=== PATIENT | male | born 1990 | race Caucasian/White ===

== ENCOUNTER 2018-07-31 01:20 | Inpatient (IN) ==
[2018-07-31] MEDS ORDERED: ceFAZolin 2 GM Premix Inj 2 GM/50 ML PIGGYBACK IV.SIG ONE ×2 (01:24→08:34)
[2018-07-31] MEDS ORDERED: Diphtheria/Tetanus/Pertussis Vaccine Inj 0.5 ML Syringe IM ONE (01:24)
[2018-07-31] MEDS ORDERED: Gentamicin/NS 80 mg Premix 100 ML IV.SIG ONE (01:24)
[2018-07-31 01:40] LABS: Baso # (Auto) 0.3 th/mm3 (0.0-0.2); Baso % (Auto) 3.4 % (0.0-2.0); Eos # (Auto) 0.2 th/mm3 (0.0-0.4); Eos % (Auto) 1.9 % (0.0-4.0); Hematocrit 44.6 % (39.0-51.0); Lymph % (Auto) 36.3 % (9.0-44.0); Mean Corpuscular HGB Conc 35.9 % (32.0-36.0); Mean Corpuscular Hemoglobin 34.3 pg (27.0-34.0); Mean Corpuscular Volume 95.6 fL (80.0-100.0); Mean Platelet Volume 8.6 fL (7.0-11.0); Mono # (Auto) 0.5 th/mm3 (0.0-0.9); Mono % (Auto) 5.9 % (0.0-8.0); Neut # (Auto) 4.3 th/mm3 (1.8-7.7); Neut % (Auto) 52.5 % (16.0-70.0); Platelet Count 250 th/mm3 (150-450); Red Blood Count 4.66 mil/mm3 (4.50-5.90); Red Cell Distribution Width 13.2 % (11.6-17.2); White Blood Count 8.1 th/mm3 (4.0-11.0)
[2018-07-31 01:49] LABS: Activated Partial Thrombo Time 24.2 sec (23.4-31.7); Prothrombin Time 10.2 sec (9.8-11.6)
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
[2018-07-31] MEDS: Sod Chloride 0.9% Inj 1,000 ML IV.CONT SCH ×2 (03:54→13:07)
[2018-07-31] MEDS: HYDROmorphone PF Inj 1 MG/ML Ampul IV.PUSH PRN ×5 (03:55→20:04)
[2018-07-31] MEDS ORDERED: Chlorhexidine Gluconate 2% 1 Pack (2 Cloths) TOPICAL PRN (04:00)
[2018-07-31] MEDS ORDERED: Chlorhexidine Gluconate 2% 1 Pack (2 Cloths) TOPICAL SCH (04:00)
[2018-07-31] MEDS ORDERED: Pantoprazole Inj 40 MG Vial IV.PUSH SCH (04:00)
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
[2018-07-31] MEDS: Multivitamin Inj 10 ML, Thiamine Inj 100 MG, Folic Acid Inj 1 MG in Sodium Chlor 0.9% I... IV.SIG SCH (05:19)
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
[2018-07-31] MEDS ORDERED: Tranexamic Acid Inj 1,200 MG in Sodium Chlor 0.9% Inj 100 ML IV.SIG SCH (08:00)
[2018-07-31] MEDS: Lidocaine 5% Patch T-DERMAL SCH (08:26)
--- NOTE | 2018-07-31 08:31 | XR ---
EXAM DATE: 07/31/2018 8:19 AM EST AGE/SEX: 89 years / Male INDICATIONS: Evaluate for pneumothorax. Pain in left upper chest. CLINICAL DATA: This is the patient's initial encounter. Patient reports that signs and symptoms have been present for 1 day and indicates a pain score of 7/10. MEDICAL/SURGICAL HISTORY: None. None. COMPARISON: [facility] – [place], [place] CHEST W CONTRAST, 07/31/2018. . FINDINGS: Ill-defined airspace disease in the left midlung with persistent. No definitive pneumothorax. Multipl e left-sided rib fractures again noted. Cardiomediastinal contours are within normal limits. CONCLUSION: 1. Redemonstration of lung contusion in the left midlung. 2. No significant pneumothorax. Electronically signed by: Cecilio Clark MD Board Certified Radiologist 07/31/2018 8:29 AM EST
--- NOTE | 2018-07-31 08:49 | XR ---
EXAM DATE: 07/31/2018 8:17 AM EST AGE/SEX: 89 years / Male INDICATIONS: Evaluate for fracture. CLINICAL DATA: This is the patient's initial encounter. Patient reports that signs and symptoms have been present for 1 day and indicates a pain score of 7/10. MEDICAL/SURGICAL HISTORY: None. None. COMPARISON: No prior exams available for comparison. FINDINGS: Bony structures are intact and in normal alignment. Joints are intact without dislocation or signifi cant arthropathy. A tiny joint effusion. Osseous density is normal. Soft tissues are unremarkable. No radiopaque foreign bodies seen. CONCLUSION: Tiny joint effusion. No fracture observed. Electronically signed by: Mata العراقي MD Board Certified Radiologist 07/31/2018 8:47 AM EST
[2018-07-31] MEDS ORDERED: Docusate Sodium 100 MG Capsule PO SCH (09:00)
[2018-07-31] MEDS: Senna/Docusate Sodium 8.6/50 MG Tablet PO SCH ×2 (09:20→20:05)
[2018-07-31] MEDS ORDERED: Lidocaine PF 1% Inj 5 ML Syringe OTHER ONE (09:22)
[2018-07-31] MEDS ORDERED: Neostigmine Inj 5 MG/5 ML Syringe IV.PUSH ONE (09:22)
[2018-07-31] MEDS ORDERED: Glycopyrrolate Inj 1 MG/5 ML Syringe IV.PUSH ONE (09:22)
[2018-07-31] MEDS ORDERED: Phenylephrine/NS 1000 MCG/10ML Syringe IV.PUSH ONE (09:22)
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
[2018-07-31] MEDS ORDERED: Post-op Orders (for Pharmacy) OTHER STA (11:14)
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
[2018-07-31] MEDS ORDERED: fentaNYL Citrate Inj 100 MCG/2 ML Ampul ONE (12:03)
[2018-07-31] MEDS ORDERED: *Meperidine Inj 25 MG/ML Vial PERIprocedural Use ONLY ONE (12:07)
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
[2018-07-31] MEDS: Methocarbamol 500 MG Tablet PO SCH ×3 (13:01→22:40)
[2018-07-31] MEDS: Ketorolac Inj 30 MG/ML (IVP) Vial IV.PUSH SCH ×2 (13:03→20:05)
[2018-07-31 13:58] LABS: Amphetamine Screen,Urine Neg (Neg); Barbiturate Screen,Urine Neg (Neg); Cannabinoid Screen,Urine Pos (Neg); Cocaine Screen,Urine Pos (Neg)
[2018-07-31 14:02] LABS: Opiate Screen,Urine Pos (Neg)
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
--- NOTE | 2018-07-31 14:48 | XR ---
EXAM DATE: 07/31/2018 2:45 PM EST AGE/SEX: 89 years / Male INDICATIONS: Screw placement right femoral head. CLINICAL DATA: This is the patient's initial encounter. Patient reports that signs and symptoms have been present for 1 day and indicates a pain score of Nonresponsive. MEDICAL/SURGICAL HISTORY: None. None. COMPARISON: [facility] [place] ABDOM[place] & PELVIS W CONTRAST, 07/31/2018. . FINDINGS: 3 images of the right hip demonstrates interval placement of 2 compression screws in the right femora l head with near-anatomic alignment of the femoral head fracture fragments. Hardware appears intact. Remaining osseous structures are intact. CONCLUSION: 1. Right femoral head fixation, as above. Electronically signed by: Cecilio Clark MD Board Certified Radiologist 07/31/2018 2:46 PM EST
[2018-07-31] MEDS: ceFAZolin 2 GM Premix Inj 2 GM/50 ML PIGGYBACK IV.SIG SCH (17:17)
[2018-07-31] MEDS: Famotidine 20 MG Tablet PO SCH (20:05)
[2018-08-01] MEDS: ceFAZolin 2 GM Premix Inj 2 GM/50 ML PIGGYBACK IV.SIG SCH ×2 (00:13→21:59)
[2018-08-01] MEDS: HYDROmorphone PF Inj 1 MG/ML Ampul IV.PUSH PRN ×4 (00:21→21:39)
[2018-08-01] MEDS ORDERED: Enoxaparin Inj 30 MG/0.3 ML Syringe SQ SCH (03:00)
[2018-08-01] MEDS: Ketorolac Inj 30 MG/ML (IVP) Vial IV.PUSH SCH ×2 (04:23→11:29)
[2018-08-01] MEDS ORDERED: Sodium Chlor 0.9% Inj 500 ML IV.CONT ONE (05:00)
[2018-08-01] MEDS ORDERED: Chlorhexidine Gluconate 2% 1 Pack (2 Cloths) TOPICAL ONE (05:00)
[2018-08-01] MEDS: Methocarbamol 500 MG Tablet PO SCH ×3 (06:20→21:39)
--- NOTE | 2018-08-01 06:46 | P.PNOP ---
Subjective Interval history: POD 1 s/p ORIF right femoral head POD 1 s/p I&D and wound closure right knee s/p right talus fx doign well. states hip is doing much better since surgery. Physical Exam Vital signs: Vital Signs 07/31/18 07:00 07/31/18 07:30 07/31/18 08:00 Temperature 99.4 F Pulse Rate 113 H 114 H 132 H Respiratory Rate 13 12 25 H Blood Pressure 133/67 147/81 H 124/86 Pulse Oximetry 98 97 99 07/31/18 08:22 07/31/18 08:30 07/31/18 08:35 Temperature Pulse Rate 117 H Respiratory Rate 18 Blood Pressure 152/104 H Pulse Oximetry 96 98 98 07/31/18 11:58 07/31/18 12:00 07/31/18 12:15 Temperature 97.8 F Pulse Rate 109 H 101 H 99 H Respiratory Rate 20 16 15 Blood Pressure 129/100 H 125/75 140/76 Pulse Oximetry 99 99 98 07/31/18 12:30 07/31/18 12:31 07/31/18 12:33 Temperature 98 F Pulse Rate 100 H Respiratory Rate 13 Blood Pressure 120/68 Pulse Oximetry 98 99 98 07/31/18 12:38 07/31/18 12:51 07/31/18 12:58 Temperature 98.8 F Pulse Rate 98 H 103 H 109 H Respiratory Rate 13 18 16 Blood Pressure 130/71 162/92 H 147/84 H Pulse Oximetry 99 98 98 07/31/18 13:00 07/31/18 13:06 07/31/18 13:30 Temperature Pulse Rate 106 H 96 H Respiratory Rate 25 H 12 10 L Blood Pressure 148/89 H 137/71 Pulse Oximetry 98 98 07/31/18 14:00 07/31/18 14:30 07/31/18 15:00 Temperature Pulse Rate 98 H 98 H 85 Respiratory Rate 10 L 10 L 10 L Blood Pressure 139/67 122/60 125/66 Pulse Oximetry 99 98 97 07/31/18 15:30 07/31/18 15:37 07/31/18 16:00 Temperature 98.4 F Pulse Rate 107 H 106 H 83 Respiratory Rate 13 12 10 L Blood Pressure 133/69 134/73 Pulse Oximetry 96 99 07/31/18 16:30 07/31/18 16:35 07/31/18 17:00 Temperature Pulse Rate 100 H 97 H Respiratory Rate 10 L 10 L 10 L Blood Pressure 125/62 127/66 Pulse Oximetry 97 98 07/31/18 17:30 07/31/18 18:00 07/31/18 18:30 Temperature Pulse Rate 92 H 115 H 120 H Respiratory Rate 13 20 21 Blood Pressure 131/76 129/63 138/84 Pulse Oximetry 100 98 97 07/31/18 19:00 07/31/18 19:30 07/31/18 20:00 Temperature 97.7 F Pulse Rate 105 H 105 H 98 H Respiratory Rate 12 23 16 Blood Pressure 130/58 L 121/57 L 115/67 Pulse Oximetry 97 98 100 07/31/18 20:30 07/31/18 20:38 08/01/18 00:00 Temperature 98.8 F Pulse Rate 106 H 99 H 99 H Respiratory Rate 23 18 18 Blood Pressure 121/73 138/67 Pulse Oximetry 98 95 08/01/18 04:00 08/01/18 04:10 Temperature 99 F Pulse Rate 98 H 74 Respiratory Rate 19 16 Blood Pressure 133/70 Pulse Oximetry 96 Intake & Output 07/31/18 07/31/18 08/01/18 06:59 18:59 06:59 Intake Total 150 / 150 3323.2 / 3323.2 50 / 50 Output Total 450 / 450 650 / 650 Balance -300 / -300 2673.2 / 2673.2 50 / 50 Weight 79.8 kg Intake: IV 150 / 150 1473.2 / 1473.2 50 / 50 NS Inj 1,000 ML @ 100 mls/hr IV 800 / 800 .CONT .Q10H [facility] Rx#:[id number] Gentamicin/NS 80 mg Premix 100 100 / 100 ML @ 0 mls/hr IV.SIG .STK-MED ONE Rx#:[id number] MVI-12 Inj 10 ML Thiamine Inj 511.2 / 511.2 100 MG Folvite Inj 1 MG In NS Inj 500 ML @ 125 mls/hr IV.SIG Q24H [facility] Rx#:[id number] Cyklokapron Inj 1,200 MG In NS 112 / 112 Inj 100 ML @ 200 mls/hr IV.SIG ONCE [facility] Rx#:[id number] Ancef 2 GM Premix Inj 2 gm In 50 / 50 50 / 50 50 / 50 50 ml @ 100 mls/hr IV.SIG Q8H [facility] Rx#:[id number] Oral 650 / 650 Anesthesia Amount 1200 / 1200 Output: Urine 450 / 450 450 / 450 Estimated Blood Loss 200 / 200 Other: # Voids 1 Weight On Admission 79.8 kg Narrative: RLE: dressings clean and dry. intact. +CKS. +splint. intact. nvi Results - Labs CBC & Chem 7: 07/31/18 01:25 Laboratory Results - last 24 hr 07/31/18 12:45 Urine Opiates Screen Pos H Ur Barbiturates Screen Neg Ur Amphetamines Screen Neg U Benzodiazepines Scrn Pos H Urine Cocaine Screen Pos H U Cannabinoids Screen Pos H - Imaging Impressions Ankle CT 07/31/18 00:00 CONCLUSION: 1. Lateral dislocation of the calcaneus with a comminuted fracture involving the lateral aspect of the talus as well as the cuboid. Ankle X-Ray 07/31/18 00:00 CONCLUSION: Poorly seen fracture involving the lateral hindfoot Elbow X-Ray 07/31/18 00:00 CONCLUSION: Tiny joint effusion. No fracture observed. Hip X-Ray 07/31/18 00:00 CONCLUSION: 1. Right femoral head fixation, as above. Knee X-Ray 07/31/18 00:00 CONCLUSION: Intraoperative images. Chest X-Ray 07/31/18 07:27 CONCLUSION: 1. Redemonstration of lung contusion in the left midlung. 2. No significant pneumothorax. Assessment and Plan - Assessment and Plan 1) Right Femoral Head Fx s/p ORIF - POD1 2) Right Knee Lacerations s/p I&D and wound closure - POD 1 3) Right Talus Fx -NWB to RLE -maintain dressings and splint -sign consents -surgery today with Michael for ORIF of right talus
[2018-08-01] MEDS: Multivitamin Inj 10 ML, Thiamine Inj 100 MG, Folic Acid Inj 1 MG in Sodium Chlor 0.9% I... IV.SIG SCH (07:06)
--- NOTE | 2018-08-01 07:14 | XR ---
EXAM DATE: 08/01/2018 7:08 AM EST AGE/SEX: 89 years / Male INDICATIONS: Pain left chest and ribs, short of breath. Evaluate pulmonary contusion. CLINICAL DATA: This is the patient's subsequent encounter. Patient reports that signs and symptoms h ave been present for 2 days and indicates a pain score of 6/10. MEDICAL/SURGICAL HISTORY: . left rib fractures None. COMPARISON: [facility] [place], CHEST 1V SINGLE AP, 07/31/2018. [facility] [place], CT CHEST W CONTRAST, 07/31/2018. [facility] [place], CHES T 1V SINGLE AP, 07/31/2018. . FINDINGS: Today's examination is compared to the prior studies. The right lung remains clear and well-aerated. There continues to be a focal pulmonary contusion in the peripheral left midlung. There is some linea r atelectasis in the left lung base. No definite pneumothorax is seen on this examination. Stable mul tiple left-sided rib fractures. No significant pleural effusions. Heart size is within normal limits. Compared to the prior exams no significant changes are demonstrated. CONCLUSION: Stable examination compared to the prior studies. No significant change in the left-sided pulmonary c ontusion. No definite pneumothorax is seen on this exam. Electronically signed by: Richy Fountain MD Board Certified Radiologist 08/01/2018 7:13 AM EST
[2018-08-01] MEDS ORDERED: ceFAZolin 2 GM Premix Inj 2 GM/50 ML PIGGYBACK IV.SIG SCH (08:00)
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
[2018-08-01 08:12] LABS: Baso % (Auto) 0.5 % (0.0-2.0); Eos # (Auto) 0.1 th/mm3 (0.0-0.4); Eos % (Auto) 0.9 % (0.0-4.0); Hematocrit 31.2 % (39.0-51.0); Hemoglobin 11.1 gm/dL (13.0-17.0); Lymph # (Auto) 1.8 th/mm3 (1.0-4.8); Lymph % (Auto) 24.9 % (9.0-44.0); Mean Corpuscular HGB Conc 35.6 % (32.0-36.0); Mean Corpuscular Hemoglobin 33.7 pg (27.0-34.0); Mean Corpuscular Volume 94.7 fL (80.0-100.0); Mean Platelet Volume 8.7 fL (7.0-11.0); Mono # (Auto) 0.7 th/mm3 (0.0-0.9); Mono % (Auto) 9.4 % (0.0-8.0); Neut # (Auto) 4.6 th/mm3 (1.8-7.7); Neut % (Auto) 64.3 % (16.0-70.0); Platelet Count 155 th/mm3 (150-450); White Blood Count 7.2 th/mm3 (4.0-11.0)
[2018-08-01 08:36] LABS: Calcium 7.5 mg/dL (8.5-10.1); Carbon Dioxide 29.3 meq/L (21.0-32.0); Potassium 3.5 meq/L (3.5-5.1)
[2018-08-01] MEDS: Senna/Docusate Sodium 8.6/50 MG Tablet PO SCH ×2 (09:56→21:39)
[2018-08-01] MEDS: Famotidine 20 MG Tablet PO SCH ×2 (09:58→21:39)
[2018-08-01] MEDS ORDERED: Neostigmine Inj 5 MG/5 ML Syringe IV.PUSH ONE (13:20)
[2018-08-01] MEDS ORDERED: Phenylephrine/NS 1000 MCG/10ML Syringe IV.PUSH ONE (13:20)
[2018-08-01] MEDS ORDERED: Glycopyrrolate Inj 1 MG/5 ML Syringe IV.PUSH ONE (13:20)
[2018-08-01] MEDS ORDERED: Lidocaine PF 1% Inj 5 ML Syringe INFILTRATN ONE (13:20)
[2018-08-01] MEDS ORDERED: Vancomycin Inj 1 GM/200 ML PIGGYBACK IV.SIG SCH (15:00)
[2018-08-01] MEDS ORDERED: ceFAZolin Inj 2,000 MG in Sodium Chlor 0.9% Inj 80 ML IV.SIG SCH (15:00)
--- NOTE | 2018-08-01 15:03 | P.OP ---
- Preoperative Diagnosis (1) Fracture of right talus Date of procedure: 08/01/18 Procedure: Open reduction internal fixation lateral process of right talus Anesthesia: GETRamin Surgeon: Prosper Pantoja MD Edge Bander Hand: ZACHARY Sood PA-C The surgical procedure was assisted by my physician car rental sales assistant. My P.A. presence was necessary throughout this case for the manipulation and positioning of the surgical extremity. My P.A. was assisting me throughout the duration of this procedure. The skill set of a physician car rental sales assistant was medically necessary to complete this procedure. During the surgical case the food quality technician was working at the back table and the physician car rental sales assistant was directly assisting me. Operation and Findings: Plan of activity: Nonweightbearing right leg Implants used: ITS Details of procedure: Informed consent obtained, operative site was marked. The foot and ankle were seen and evaluated this morning. Soft tissue swelling had significantly improved and appeared to be ready for surgery. He was brought to the operating room and placed on the operating room table. He was given intravenous sedation, general endotracheal anesthesia. He received IV antibiotics and was placed in the lateral decubitus position. Foot and leg were prepped with alcohol, followed by Hibiclens, draped in usual sterile fashion. A time out procedure was preformed. The procedure began with a 2 inch incision over the lateral aspect of the lateral process of the talus and subtalar joint. Full-thickness flaps were elevated. The fracture was visualized. There was significant comminution of the fracture. There was significant articular cartilage injury of both the talus and the calcaneus. Multiple small fragments were excised. There were 3 larger fragments. At this point the foot was elevated. The tourniquet was inflated. The joint was distracted. The joint was thoroughly irrigated. At this point attention was turned to reduction of the fracture. The articular surface fragments were reduced first. An additional cortical fragment was reduced. K wires were used to hold provisional fixation. Multiplanar fluoroscopy confirmed well aligned fracture. A 3.5 cortical lag screw with a washer was now placed across the large cortical fragment. An additional 2.7 cortical lag screw was placed across the more anterior fragment. Additional 1.5 mm Arthrex bioabsorbable pins were placed across fragments for additional support. Fluoroscopy confirmed well aligned fracture with well-placed hardware. Incision was thoroughly irrigated. Tourniquet was released. Hemostasis was confirmed. Fascia layer was closed 0 Vicryl, the skin and subcutaneous tissue closed with 3-0 nylon, in vertical mattress fashion. Sterile dressings were applied the patient was placed into a well molded padded splint. The patient was transferred to the Recovery Room in stable condition.
[2018-08-01] MEDS ORDERED: fentaNYL Citrate Inj 100 MCG/2 ML Ampul ONE (15:30)
[2018-08-01] MEDS ORDERED: Morphine Inj 4 MG/ML Vial ONE (15:30)
[2018-08-01] MEDS ORDERED: *morphine SULFATE 4 MG/ML PERIprocedure ONLY ONE (15:35)
[2018-08-01] MEDS ORDERED: *morphine SULFATE 10 MG/ML PERIprocedure ONLY ONE (15:48)
--- NOTE | 2018-08-01 15:50 | P.PNOP ---
Subjective Interval history: POd 0 s/p ORIF right talus POD 1 s/p ORIF right femoral head stable in pacu Physical Exam Vital signs: Vital Signs 07/31/18 16:00 07/31/18 16:30 07/31/18 16:35 Temperature 98.4 F Pulse Rate 83 100 H Respiratory Rate 10 L 10 L 10 L Blood Pressure 134/73 125/62 Pulse Oximetry 99 97 07/31/18 17:00 07/31/18 17:30 07/31/18 18:00 Temperature Pulse Rate 97 H 92 H 115 H Respiratory Rate 10 L 13 20 Blood Pressure 127/66 131/76 129/63 Pulse Oximetry 98 100 98 07/31/18 18:30 07/31/18 19:00 07/31/18 19:30 Temperature Pulse Rate 120 H 105 H 105 H Respiratory Rate 21 12 23 Blood Pressure 138/84 130/58 L 121/57 L Pulse Oximetry 97 97 98 07/31/18 20:00 07/31/18 20:30 07/31/18 20:38 Temperature 97.7 F Pulse Rate 98 H 106 H 99 H Respiratory Rate 16 23 18 Blood Pressure 115/67 121/73 Pulse Oximetry 100 98 08/01/18 00:00 08/01/18 04:00 08/01/18 04:10 Temperature 98.8 F 99 F Pulse Rate 99 H 98 H 74 Respiratory Rate 18 19 16 Blood Pressure 138/67 133/70 Pulse Oximetry 95 96 08/01/18 08:00 08/01/18 08:38 08/01/18 11:55 Temperature 98.1 F 98.4 F Pulse Rate 100 H 95 H 87 Respiratory Rate 16 Blood Pressure 108/57 L 126/58 L Pulse Oximetry 98 95 96 08/01/18 12:00 Temperature 98.3 F Pulse Rate 89 Respiratory Rate 20 Blood Pressure 117/63 Pulse Oximetry 95 Intake & Output 07/31/18 08/01/18 08/01/18 18:59 06:59 18:59 Intake Total 3323.2 / 3323.2 530 / 530 750 / 750 Output Total 650 / 650 270 / 270 Balance 2673.2 / 2673.2 530 / 530 480 / 480 Weight 89.7 kg Intake: IV 1473.2 / 1473.2 50 / 50 50 / 50 NS Inj 1,000 ML @ 100 mls/hr IV 800 / 800 .CONT .Q10H FIDEL Rx#:[id number] MVI-12 Inj 10 ML Thiamine Inj 511.2 / 511.2 100 MG Folvite Inj 1 MG In NS Inj 500 ML @ 125 mls/hr IV.SIG Q24H FIDEL Rx#:[id number] Cyklokapron Inj 1,200 MG In NS 112 / 112 Inj 100 ML @ 200 mls/hr IV.SIG ONCE FIDEL Rx#:[id number] Ancef 2 GM Premix Inj 2 gm In 50 / 50 50 / 50 50 / 50 50 ml @ 100 mls/hr IV.SIG Q8H FIDEL Rx#:[id number] Oral 650 / 650 480 / 480 Anesthesia Amount 1200 / 1200 700 / 700 Output: Urine 450 / 450 250 / 250 Estimated Blood Loss 200 / 200 Other: Date of Last Bowel Movement 07/30/18 07/30/18 Narrative: RLE: dressings clean and dry. intact. +splint. +CKS Results - Labs CBC & Chem 7: 08/01/18 07:05 08/01/18 07:05 Laboratory Results - last 24 hr 08/01/18 08/01/18 07:05 07:05 WBC 7.2 RBC 3.30 L Hgb 11.1 L D Hct 31.2 L MCV 94.7 MCH 33.7 MCHC 35.6 RDW 13.0 Plt Count 155 D MPV 8.7 Neut % (Auto) 64.3 Lymph % (Auto) 24.9 [place] % (Auto) 9.4 H Eos % (Auto) 0.9 Baso % (Auto) 0.5 Neut # (Auto) 4.6 Lymph # (Auto) 1.8 [place] # (Auto) 0.7 Eos # (Auto) 0.1 Baso # (Auto) 0.0 WBC Differential . Differential Comment Auto diff final Sodium 141 Potassium 3.5 Chloride 106 Carbon Dioxide 29.3 Anion Gap 6 BUN 14 Creatinine 0.84 Estimated GFR 79 L Random Glucose 133 H Calcium 7.5 L - Imaging Impressions Chest X-Ray 08/01/18 06:00 CONCLUSION: Stable examination compared to the prior studies. No significant change in the left-sided pulmonary contusion. No definite pneumothorax is seen on this exam. Assessment and Plan - Assessment and Plan 1) Right Femoral Head Fx s/p ORIF - POD1 2) Right Knee Lacerations s/p I&D and wound closure - POD 1 3) Right Talus Fx s/p ORIF - POD 0 -NWB to RLE -maintain dressings and splint -maintain knee brace -maintain surgical dressing over hip x 6 days, then begin daily dressings with [place] on POD 7 -CM for DC planning -DVT prophylaxis -ortho surgeries complete -f/u with [facility] or [facility] in 2 weeks
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
[2018-08-01] MEDS: Lidocaine 5% Patch T-DERMAL SCH ×2 (16:19→17:52)
--- NOTE | 2018-08-01 19:43 | XR ---
EXAM DATE: 08/01/2018 7:36 PM EST AGE/SEX: 27 years / Male INDICATIONS: Right talus ORIF. CLINICAL DATA: This is the patient's initial encounter. Patient reports that signs and symptoms have been present for 1 day and indicates a pain score of Nonresponsive. MEDICAL/SURGICAL HISTORY: Non-responsive. Non-responsive. COMPAR[place]: [facility] [place]/O [place], 07/31/2018. . FINDINGS: 3 images from the OR have been submitted. 2 screws are seen through the proximal and mid tibia from a lateral approach. The hardware appears well placed. CONCLUSION: Successful ORIF. Electronically signed by: Guy Del Toro MD Board Certified Radiologist 08/01/2018 7:42 PM EST
[2018-08-02] MEDS: HYDROmorphone PF Inj 1 MG/ML Ampul IV.PUSH PRN ×5 (02:02→20:23)
[2018-08-02] MEDS: Enoxaparin Inj 30 MG/0.3 ML Syringe SQ SCH ×2 (02:03→14:26)
[2018-08-02] MEDS: Vancomycin Inj 1,000 MG in Sodium Chlor 0.9% Inj 250 ML IV.SIG SCH ×2 (02:03→13:34)
--- NOTE | 2018-08-02 04:56 | XR ---
EXAM DATE: 08/02/2018 4:24 AM EST AGE/SEX: 27 years / Male INDICATIONS: Shortness of breath. CLINICAL DATA: This is the patient's subsequent encounter. Patient reports that signs and symptoms h ave been present for 2 days and indicates a pain score of 1/10. MEDICAL/SURGICAL HISTORY: . Smoker. . Gastrectomy. [place] [facility] [place]. . FINDINGS: Cavitary contusion in the lateral left lower lung is grossly unchanged. Streaky left base parenchymal opacity is also stable. Right lung remains clear. Cardiac contours are unchanged. CONCLUSION: No significant change Electronically signed by: Guy Tariq MD Board Certified Radiologist 08/02/2018 4:55 AM EST
[2018-08-02 05:09] LABS: Baso % (Auto) 0.1 % (0.0-2.0); Hematocrit 32.7 % (39.0-51.0); Hemoglobin 11.5 gm/dL (13.0-17.0); Lymph # (Auto) 0.9 th/mm3 (1.0-4.8); Lymph % (Auto) 9.4 % (9.0-44.0); Mean Corpuscular Hemoglobin 33.6 pg (27.0-34.0); Mean Platelet Volume 9.2 fL (7.0-11.0); Mono # (Auto) 0.7 th/mm3 (0.0-0.9); Mono % (Auto) 7.3 % (0.0-8.0); Neut # (Auto) 7.7 th/mm3 (1.8-7.7); Neut % (Auto) 83.2 % (16.0-70.0); Platelet Count 182 th/mm3 (150-450); Red Blood Count 3.41 mil/mm3 (4.50-5.90); Red Cell Distribution Width 13.1 % (11.6-17.2); White Blood Count 9.3 th/mm3 (4.0-11.0)
[2018-08-02 05:36] LABS: Anion Gap 4 meq/L (5-15); Blood Urea Nitrogen 8 mg/dL (7-18); Calcium 8.1 mg/dL (8.5-10.1); Carbon Dioxide 32.9 meq/L (21.0-32.0); Chloride 103 meq/L (98-107); Glomerular Filtration Rate Greater Than 89 mL/min (>89); Glucose,Random 123 mg/dL (74-106); Potassium 4.1 meq/L (3.5-5.1); Sodium 140 meq/L (136-145)
[2018-08-02] MEDS: ceFAZolin 2 GM Premix Inj 2 GM/50 ML PIGGYBACK IV.SIG SCH ×3 (05:40→22:38)
[2018-08-02] MEDS: Methocarbamol 500 MG Tablet PO SCH ×3 (05:40→22:38)
[2018-08-02] MEDS: Multivitamin Inj 10 ML, Thiamine Inj 100 MG, Folic Acid Inj 1 MG in Sodium Chlor 0.9% I... IV.SIG SCH (06:20)
--- NOTE | 2018-08-02 06:48 | P.PNOP ---
Subjective Interval history: Pain is controlled. Resting comfortably in bed. No new complaints Physical Exam Vital signs: Vital Signs 08/01/18 08:00 08/01/18 08:38 08/01/18 11:55 Temperature 98.1 F 98.4 F Pulse Rate 100 H 95 H 87 Respiratory Rate 16 Blood Pressure 108/57 L 126/58 L Pulse Oximetry 98 95 96 08/01/18 12:00 08/01/18 15:18 08/01/18 15:30 Temperature 98.3 F 98.1 F Pulse Rate 89 112 H 98 H Respiratory Rate 20 14 14 Blood Pressure 117/63 143/83 H 126/65 Pulse Oximetry 95 99 96 08/01/18 15:45 08/01/18 17:56 08/01/18 19:21 Temperature 98.4 F 98.1 F Pulse Rate 96 H 110 H Respiratory Rate 18 18 19 Blood Pressure 135/80 139/68 Pulse Oximetry 95 95 08/01/18 20:00 08/01/18 20:25 08/01/18 22:09 Temperature Pulse Rate 86 Respiratory Rate 18 16 19 Blood Pressure Pulse Oximetry 08/01/18 23:20 08/02/18 00:00 08/02/18 02:49 Temperature 98.6 F Pulse Rate 101 H Respiratory Rate 19 18 18 Blood Pressure 133/78 Pulse Oximetry 95 08/02/18 03:12 08/02/18 05:00 Temperature 98.2 F Pulse Rate 101 H Respiratory Rate 18 18 Blood Pressure 113/67 Pulse Oximetry 94 L Intake & Output 08/01/18 08/01/18 08/02/18 06:59 18:59 06:59 Intake Total 530 / 530 1381.2 / 1381.2 350 / 350 Output Total 870 / 870 2200 / 2200 Balance 530 / 530 511.2 / 511.2 -1850 / -1850 Weight 89.7 kg 94.2 kg Intake: IV 50 / 50 561.2 / 561.2 350 / 350 MVI-12 Inj 10 ML Thiamine Inj 511.2 / 511.2 100 MG Folvite Inj 1 MG In NS Inj 500 ML @ 125 mls/hr IV.SIG Q24H FIDEL Rx#:[id number] Vancomycin Inj 1,000 MG In NS 250 / 250 Inj 250 ML @ 250 mls/hr IV.SIG Q12H FIDEL Rx#:[id number] Ancef 2 GM Premix Inj 2 gm In 50 / 50 50 / 50 100 / 100 50 ml @ 100 mls/hr IV.SIG Q8H FIDEL Rx#:[id number] Oral 480 / 480 120 / 120 Anesthesia Amount 700 / 700 Output: Urine 850 / 850 2200 / 2200 Estimated Blood Loss Other: # Voids 1 1 Date of Last Bowel Movement 07/30/18 07/30/18 Narrative: Right lower extremity: Clean dry dressings intact. Knee immobilizer in place. Splints intact. Intact sensation distally with good capillary refills active movement of toes Results - Labs CBC & Chem 7: 08/02/18 04:06 08/02/18 04:06 Laboratory Results - last 24 hr 08/01/18 08/01/18 08/02/18 07:05 07:05 04:06 WBC 7.2 9.3 RBC 3.30 L 3.41 L Hgb 11.1 L D 11.5 L Hct 31.2 L 32.7 L MCV 94.7 96.0 MCH 33.7 33.6 MCHC 35.6 35.0 RDW 13.0 13.1 Plt Count 155 D 182 MPV 8.7 9.2 Neut % (Auto) 64.3 83.2 H Lymph % (Auto) 24.9 9.4 [place] % (Auto) 9.4 H 7.3 Eos % (Auto) 0.9 0.0 Baso % (Auto) 0.5 0.1 Neut # (Auto) 4.6 7.7 Lymph # (Auto) 1.8 0.9 L [place] # (Auto) 0.7 0.7 Eos # (Auto) 0.1 0.0 Baso # (Auto) 0.0 0.0 WBC Differential . . Differential Comment Auto diff final Auto diff final Sodium 141 Potassium 3.5 Chloride 106 Carbon Dioxide 29.3 Anion Gap 6 BUN 14 Creatinine 0.84 Estimated GFR 79 L Random Glucose 133 H Calcium 7.5 L 08/02/18 04:06 WBC RBC Hgb Hct MCV MCH MCHC RDW Plt Count MPV Neut % (Auto) Lymph % (Auto) [place] % (Auto) Eos % (Auto) Baso % (Auto) Neut # (Auto) Lymph # (Auto) [place] # (Auto) Eos # (Auto) Baso # (Auto) WBC Differential Differential Comment Sodium 140 Potassium 4.1 Chloride 103 Carbon Dioxide 32.9 H Anion Gap 4 L BUN 8 Creatinine 0.77 Estimated GFR Greater than 89 Random Glucose 123 H Calcium 8.1 L - Imaging Impressions Foot X-Ray 08/01/18 00:00 CONCLUSION: Successful ORIF. Chest X-Ray 08/01/18 06:00 CONCLUSION: Stable examination compared to the prior studies. No significant change in the left-sided pulmonary contusion. No definite pneumothorax is seen on this exam. Chest X-Ray 08/02/18 06:00 CONCLUSION: No significant change Assessment and Plan - Assessment and Plan 1) Right Femoral Head Fx s/p ORIF - POD2 2) Right Knee Lacerations s/p I&D and wound closure - POD 2 3) Right Talus Fx s/p ORIF - POD 1 -NWB to RLE, no active leg lifts -maintain dressings and splint -maintain knee brace -maintain surgical dressing over hip x 6 days, then begin daily dressings with [place] on POD 7 -CM for DC planning -DVT prophylaxis -ortho surgeries complete -Case management for discharge plan -f/u with [facility] or [facility] in 2 weeks
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
[2018-08-02] MEDS: Famotidine 20 MG Tablet PO SCH ×2 (08:23→20:23)
[2018-08-02] MEDS: Senna/Docusate Sodium 8.6/50 MG Tablet PO SCH ×2 (08:25→20:23)
[2018-08-02] MEDS: Lidocaine 5% Patch T-DERMAL SCH (08:29)
[2018-08-03] MEDS: Enoxaparin Inj 30 MG/0.3 ML Syringe SQ SCH ×2 (03:38→14:31)
--- NOTE | 2018-08-03 04:30 | XR ---
EXAM DATE: 08/03/2018 3:57 AM EST AGE/SEX: 27 years / Male INDICATIONS: Follow up pulmonary contusion and rib fractures. CLINICAL DATA: This is the patient's subsequent encounter. Patient reports that signs and symptoms h ave been present for 4 - 6 days and indicates a pain score of 0/10. MEDICAL/SURGICAL HISTORY: . Smoker. . Gastrectomy. COMPARISON: [facility] [place], CHEST 1V SINGLE AP, 08/02/2018. . FINDINGS: Lateral left midlung cavitary contusion and left base consolidation/effusion persist. Right lung lorenzo ins clear. Cardiac contours are stable. CONCLUSION: No significant change Electronically signed by: Guy Tariq MD Board Certified Radiologist 08/03/2018 4:28 AM EST
[2018-08-03] MEDS: Methocarbamol 500 MG Tablet PO SCH ×3 (05:47→22:05)
[2018-08-03] MEDS: HYDROmorphone PF Inj 1 MG/ML Ampul IV.PUSH PRN ×4 (05:47→19:01)
[2018-08-03] MEDS: ceFAZolin 2 GM Premix Inj 2 GM/50 ML PIGGYBACK IV.SIG SCH ×2 (05:48→14:31)
--- NOTE | 2018-08-03 06:41 | P.PNOP ---
Subjective Interval history: Resting comfortably with no new complaint Physical Exam Vital signs: Vital Signs 08/02/18 06:46 08/02/18 08:00 08/02/18 08:21 Temperature 97.8 F Pulse Rate 89 82 Respiratory Rate 18 16 18 Blood Pressure Pulse Oximetry 08/02/18 12:00 08/02/18 16:00 08/02/18 19:01 Temperature 98.7 F 98.0 F Pulse Rate 92 H 90 Respiratory Rate 16 16 18 Blood Pressure 129/69 125/66 Pulse Oximetry 93 L 95 08/02/18 20:00 08/02/18 21:13 08/03/18 00:00 Temperature 98.1 F 99.1 F Pulse Rate 85 96 H 89 Respiratory Rate 18 20 18 Blood Pressure 136/81 126/62 Pulse Oximetry 96 93 L 08/03/18 04:00 08/03/18 04:13 Temperature 97.9 F Pulse Rate 94 H 91 H Respiratory Rate 18 16 Blood Pressure 138/72 Pulse Oximetry 93 L Intake & Output 08/02/18 08/02/18 08/03/18 06:59 18:59 06:59 Intake Total 350 / 350 1662 / 1662 100 / 100 Output Total 2200 / 2200 1600 / 1600 400 / 400 Balance -1850 / -1850 62 / 62 -300 / -300 Weight 94.2 kg Intake: IV 350 / 350 812 / 812 100 / 100 MVI-12 Inj 10 ML Thiamine Inj 512 / 512 100 MG Folvite Inj 1 MG In NS Inj 500 ML @ 125 mls/hr IV.SIG Q24H FIDEL Rx#:[id number] Vancomycin Inj 1,000 MG In NS 250 / 250 250 / 250 Inj 250 ML @ 250 mls/hr IV.SIG Q12H FIDEL Rx#:[id number] Ancef 2 GM Premix Inj 2 gm In 100 / 100 50 / 50 100 / 100 50 ml @ 100 mls/hr IV.SIG Q8H FIDEL Rx#:[id number] Oral 850 / 850 Output: Urine 2200 / 2200 1600 / 1600 400 / 400 Other: # Voids 1 Date of Last Bowel Movement 08/02/18 08/02/18 # Bowel Movements 1 Narrative: Right lower extremity: Clean dry dressings intact. Knee immobilizer and splint in place. Intact sensation in toes. Active movement of toes Results - Labs CBC & Chem 7: 08/02/18 04:06 08/02/18 04:06 - Imaging Impressions Chest X-Ray 08/03/18 06:00 CONCLUSION: No significant change Assessment and Plan - Assessment and Plan 1) Right Femoral Head Fx s/p ORIF - POD3 2) Right Knee Lacerations s/p I&D and wound closure - POD 3 3) Right Talus Fx s/p ORIF - POD 2 -NWB to RLE, no active leg lifts -maintain dressings and splint -maintain knee brace -maintain surgical dressing over hip x 6 days, then begin daily dressings with primapore on POD 7 -CM for DC planning -DVT prophylaxis -ortho surgeries complete -Case management for discharge plan -f/u with [facility] or [facility] in 2 weeks
[2018-08-03] MEDS: Famotidine 20 MG Tablet PO SCH ×2 (08:44→20:43)
[2018-08-03] MEDS: Senna/Docusate Sodium 8.6/50 MG Tablet PO SCH ×2 (08:44→20:42)
[2018-08-03] MEDS: Lidocaine 5% Patch T-DERMAL SCH (08:45)
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
[2018-08-04] MEDS: HYDROmorphone PF Inj 1 MG/ML Ampul IV.PUSH PRN ×6 (00:01→22:40)
[2018-08-04] MEDS: Enoxaparin Inj 30 MG/0.3 ML Syringe SQ SCH ×2 (04:29→15:00)
[2018-08-04] MEDS: Methocarbamol 500 MG Tablet PO SCH ×4 (06:07→21:00)
--- NOTE | 2018-08-04 06:55 | P.PNOP ---
Subjective Interval history: Resting comfortably and progressing well with physical therapy Physical Exam Vital signs: Vital Signs 08/03/18 08:44 08/03/18 11:19 08/03/18 15:13 Temperature 98.2 F 98.6 F 97.7 F Pulse Rate 99 H 92 H 93 H Respiratory Rate 20 20 20 Blood Pressure 127/63 129/66 124/76 Pulse Oximetry 92 L 95 94 L 08/03/18 17:12 08/03/18 20:05 08/03/18 21:27 Temperature 98.5 F Pulse Rate 92 H 88 92 H Respiratory Rate 20 18 17 Blood Pressure 123/68 Pulse Oximetry 95 08/03/18 23:45 08/04/18 00:41 Temperature 98.2 F Pulse Rate 95 H Respiratory Rate 18 16 Blood Pressure 133/67 Pulse Oximetry 93 L Intake & Output 08/03/18 08/03/18 08/04/18 06:59 18:59 06:59 Intake Total 300 / 300 650 / 650 840 / 840 Output Total 1150 / 1150 1050 / 1050 Balance -850 / -850 650 / 650 -210 / -210 Weight 94.2 kg 92 kg Intake: IV 100 / 100 550 / 550 Ancef 2 GM Premix Inj 2 gm In 100 / 100 50 / 50 50 ml @ 100 mls/hr IV.SIG Q8H FIDEL Rx#:[id number] Oral 200 / 200 840 / 840 Other 100 / 100 Output: Urine 1150 / 1150 1050 / 1050 Other: Other Intake Source Saline Solution Date of Last Bowel Movement 08/02/18 08/02/18 # Bowel Movements 0 0 Narrative: Right lower extremity: Clean dry dressings intact. Knee immobilizer in place. Short leg splint intact and clean with no drainage Results - Labs CBC & Chem 7: 08/02/18 04:06 08/02/18 04:06 Assessment and Plan - Assessment and Plan 1) Right Femoral Head Fx s/p ORIF - POD4 2) Right Knee Lacerations s/p I&D and wound closure - POD 4 3) Right Talus Fx s/p ORIF - POD 3 -NWB to RLE, no active leg lifts -maintain dressings and splint -maintain knee brace -maintain surgical dressing over hip x 6 days, then begin daily dressings with primapore on POD 7 -CM for DC planning -DVT prophylaxis -ortho surgeries complete -Case management for discharge plan Orthopedically for discharge -f/u with [facility] or [facility] in 2 weeks
--- NOTE | 2018-08-04 06:59 | P.DCO ---
- Physical Therapy Physical Therapy: Safety evaluation Hip: Hip fracture Right Lower Extremity Weight Bearing: Non-weight bearing (May rest on ground but no weightbearing) - Nursing Dressing changes: Do not change dressing (to right ankle or knee), Daily dressing change (Beginning 08/07/2018), Coverderm/Primapore - Case Management Consult Case Management Consult-Home Health: Yes - Certification Need for Home Health services: I have seen patient Jeffry Mars on 08/04/18. My clinical findings support the need for the requested home health care services because: Need for Home Health Services: Limited mobility due to disease progression Homebound Certification: I certify that my clinical findings support that this patient is homebound because: Homebound Certification: Post-op weakness
[2018-08-04] MEDS ORDERED: Bisacodyl 10 MG Supp RECTAL ONE (07:30)
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
[2018-08-04] MEDS: Famotidine 20 MG Tablet PO SCH ×2 (08:50→20:13)
[2018-08-04] MEDS: Senna/Docusate Sodium 8.6/50 MG Tablet PO SCH ×2 (08:50→20:13)
[2018-08-04] MEDS: Lidocaine 5% Patch T-DERMAL SCH (08:50)
[2018-08-05] MEDS: HYDROmorphone PF Inj 1 MG/ML Ampul IV.PUSH PRN ×3 (02:44→14:44)
[2018-08-05] MEDS: Enoxaparin Inj 30 MG/0.3 ML Syringe SQ SCH ×2 (02:44→14:45)
[2018-08-05] MEDS: Methocarbamol 500 MG Tablet PO SCH ×2 (05:29→14:45)
[2018-08-05] MEDS ORDERED: Magnesium Citrate Liq 300 ML Bottle PO ONE (09:00)
[2018-08-05] MEDS: Famotidine 20 MG Tablet PO SCH (09:02)
[2018-08-05] MEDS: Senna/Docusate Sodium 8.6/50 MG Tablet PO SCH (09:02)
[2018-08-05] MEDS: Lidocaine 5% Patch T-DERMAL SCH (09:02)
[2018-08-05 09:10] VITALS: PULSE 96; RESP 20
--- NOTE | 2018-08-05 11:25 | P.PNOP ---
Subjective Interval history: Resting comfortably. States that he had more pain today from the hip and foot. Physical Exam Vital signs: Vital Signs 08/04/18 12:00 08/04/18 16:00 08/04/18 20:43 Temperature 97.9 F 98.4 F Pulse Rate 95 H 93 H Respiratory Rate 20 15 18 Blood Pressure 122/73 131/61 Pulse Oximetry 93 L 94 L 08/04/18 20:50 08/04/18 23:10 08/05/18 00:03 Temperature 98.5 F 99.0 F Pulse Rate 90 91 H Respiratory Rate 16 18 17 Blood Pressure 124/65 117/74 Pulse Oximetry 96 94 L 08/05/18 00:51 08/05/18 03:15 08/05/18 05:53 Temperature Pulse Rate Respiratory Rate 17 18 18 Blood Pressure Pulse Oximetry 08/05/18 08:00 Temperature 98.2 F Pulse Rate 96 H Respiratory Rate 20 Blood Pressure 133/76 Pulse Oximetry 95 Intake & Output 08/04/18 08/05/18 08/05/18 18:59 06:59 18:59 Intake Total 1080 / 1080 Output Total 900 / 900 1275 / 1275 Balance -900 / -900 -195 / -195 Weight 90.2 kg Intake: Oral 1080 / 1080 Output: Urine 900 / 900 1275 / 1275 Other: # Voids 2 Date of Last Bowel Movement 08/03/18 08/04/18 # Bowel Movements 0 Narrative: Right lower extremity: Clean dry dressings intact. Knee immobilizer in place. Short leg splint intact. Intact sensation in all toes with active movement of toes Results - Labs CBC & Chem 7: 08/02/18 04:06 08/02/18 04:06 Assessment and Plan - Problem List (1) Displaced fracture of head of right femur Code(s): S72.051A - Unspecified fracture of head of right femur, initial encounter for closed fracture Status: Acute (2) Fracture of right talus Code(s): S92.101A - Unspecified fracture of right talus, initial encounter for closed fracture Status: Acute Qualifiers: Encounter type: initial encounter Fracture type: closed Talus location: unspecified portion of talus - Assessment and Plan 1) Right Femoral Head Fx s/p ORIF - POD5 2) Right Knee Lacerations s/p I&D and wound closure - POD 5 3) Right Talus Fx s/p ORIF - POD 4 -NWB to RLE, no active leg lifts -maintain dressings and splint -maintain knee brace -maintain surgical dressing over hip x 6 days, then begin daily dressings with primapore on POD 7 -CM for DC planning -DVT prophylaxis -ortho surgeries complete -Case management for discharge plan Orthopedically cleared for discharge -f/u with [facility] or [facility] in 2 weeks
[2018-08-05 12:59] VITALS: BP 116/58; TEMP 97.8; O2SAT 94
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
== END 2018-08-05 20:26 | disposition home health service (06) | DRG 956 ==
LOC: NEPE 01:20 → NEDA 02:27 → EDBD 02:27 → N03 03:35 → N06 22:05
PROVIDERS: ADMIT Surgery; ATTEND Surgery
PROC: ORIFHIP (2018-07-31 09:15)
PROC: ORIFANK (2018-08-01 13:20)
CPT/HCPCS: 70450; 70486; 71010; 71045; 71260; 72125; 72129; 72132; 72170; 73080; 73502; 73551; 73560; 73590; 73610; 73630; 73700; 74177; 76000; 80048; 80307; 82435; 82565; 82947; 84132; 84295; 84520; 85025; 85384; 85610; 85730; 86850; 86900; 86901; 90715; 94150; 94640; 94664; 94665; 97110; 97116; 97163; 97166; 97530; 97535; C1713; C1776; C9113; J0690; J1100; J1170; J1580; J1650; J1885; J2175; J2250; J2270; J2370; J2405; J2704; J2710; J3010; J3370; J3411; J7030; J7040; J7050; J7120; L1830; Q9967